=== PATIENT | female | born 1935 | race Caucasian/White ===

== ENCOUNTER 2018-01-06 21:49 | Inpatient (IN) ==
[2018-01-06 23:19] LABS: Basophils % 0.1 % (0.0-0.8); Eosinophils # 0.1 10*3/uL (0.0-0.87); Eosinophils % 1.3 % (0.00-10.9); Hematocrit 38.7 VOL% (35.7-47.0); Hemoglobin 12.8 GM/DL (12.0-16.0); Immature Granulocytes % 0.1 %; Immature Granulocytes Absolute 0.01 #; Lymphocytes # 2.2 10*3/uL (1.4-4.0); Lymphocytes % 31.7 % (21.3-54.2); Mean Corpuscular HGB Conc 33.1 GM/DL (32-36); Mean Corpuscular Hemoglobin 32 PG (27-34); Mean Corpuscular Volume 95.6 FL (87-102); Mean Platelet Volume 9.3 FL (9.6-12.0); Monocytes # 0.7 10*3/uL (0.11-0.8); Monocytes % 10.2 % (1.7-12.7); Neutrophils # 3.9 10*3/uL (1.4-7.4); Neutrophils % 56.6 % (38.7-73.9); Platelet Count 203 T/CUMM (130-400); Red Blood Count 4.05 MC/CUMM (3.8-5.5); White Blood Count 6.9 T/CUMM (4-12)
[2018-01-06 23:27] LABS: PT Patient Result 10.8 SECS; Partial Thromboplastin Time 26.5 SECS (0-40)
[2018-01-06 23:28] LABS: Alanine Aminotransferase 21 U/L (13-56); Albumin 3.7 G/DL (3.4-5.0); Alkaline Phosphatase 75 U/L (45-117); Aspartate Amino Transferase 24 U/L (0-37); Blood Urea Nitrogen 25 MG/DL (7-18); Calcium 9.4 MG/DL (8.5-10.1); Glucose 89 MG/DL (74-106); Potassium 3.8 MMOL/L (3.5-5.1); Sodium 136 MMOL/L (136-145); Troponin I Only < 0.015 NG/ML (0.00-0.045)
[2018-01-06] MEDS ORDERED: ALBUTEROL 2.5 MG/3 ML NEB RESP TX SCH (23:45)
[2018-01-06] MEDS ORDERED: ONDANSETRON 4 MG/2 ML VIAL IV STA (23:51)
[2018-01-06] MEDS ORDERED: FUROSEMIDE 100 MG/10 ML VIAL IV STA (23:51)
[2018-01-06] MEDS ORDERED: cloNIDine 0.1 MG TABLET PO STA (23:51)
[2018-01-07] MEDS ORDERED: METOPROLOL TARTRATE 5 MG/5 ML VIAL IV STA (00:57)
[2018-01-07 02:28] LABS: Apearance,Urine Slightly Hazy (Clear); Bilirubin,Urine Negative (Negative); Blood, Urine Small mg/dL (Negative); Glucose,Urine (UA) Negative (Negative); Ketones,Urine Negative (Negative); Mucus,Urine Occasional /LPF (Occasional); Nitrite,Urine Negative (Negative); Protein,Urine Negative; RBC,Urine 6 /HPF (0-4); Renal Epithelial Cells,Urine Occasional /HPF (<1); Squamous Epithelial Cell,Urine Occasional /HPF (0-10); Urine Color Yellow (Yellow); Urine Urobilinogen < 2.0 EU/DL (0.2-1.0); WBC,Urine 136 /HPF (0-6)
[2018-01-07] MEDS ORDERED: LACTATED RINGERS 500 ML IV ONE (02:43)
[2018-01-07] MEDS ORDERED: cefTRIAXone 1,000 MG in SODIUM CHLORIDE 0.9% 100 ML IV STA (02:44)
[2018-01-07 04:31] LABS: Lactic Acid 2.6 MMOL/L (0.4-2.0)
[2018-01-07] MEDS ORDERED: ACETAMINOPHEN 325 MG TABLET PO ONE (04:42)
[2018-01-07] MEDS ORDERED: cefTRIAXone 1,000 MG in SYRINGE 1 EACH IV SCH (07:00)
[2018-01-07] MEDS ORDERED: methylPREDNISolone SOD SUC 125 MG/2 ML VIAL IV SCH (07:17)
[2018-01-07] MEDS ORDERED: ONDANSETRON 4 MG/2 ML VIAL IV PRN (07:17)
[2018-01-07] MEDS ORDERED: SODIUM CHLORIDE 0.9% 1,000 ML IV ONE (07:17)
[2018-01-07 08:38] LABS: Lactic Acid 3.2 MMOL/L (0.4-2.0)
[2018-01-07 08:40] LABS: Risk Ratio 4.77
[2018-01-07] MEDS: MULTIVITAMIN (CENTRUM) TABLET PO SCH (10:29)
[2018-01-07] MEDS: FUROSEMIDE 40 MG TABLET PO SCH (10:29)
[2018-01-07] MEDS: DOCUSATE SODIUM 100 MG CAPSULE PO SCH ×2 (10:29→20:35)
[2018-01-07] MEDS: methylPREDNISolone SOD SUC 40 MG/1 ML VIAL IV SCH ×2 (10:30→23:39)
[2018-01-07] MEDS: DICLOFENAC 1% GEL 100 GM TUBE TOP SCH ×3 (10:30→20:36)
[2018-01-07] MEDS: ENOXAPARIN 40 MG/0.4 ML SYRINGE SUBCUT SCH (10:30)
[2018-01-07] MEDS: ASPIRIN EC 81 MG TABLET PO SCH (10:30)
[2018-01-07] MEDS: PANTOPRAZOLE 40 MG TABLET PO SCH (10:30)
[2018-01-07] MEDS: ACETAMINOPHEN 325 MG TABLET PO PRN ×2 (14:21→20:35)
[2018-01-08] MEDS: ACETAMINOPHEN 325 MG TABLET PO PRN (01:04)
[2018-01-08] MEDS ORDERED: cefTRIAXone 1,000 MG in SYRINGE 1 EACH IV SCH (04:00)
[2018-01-08] MEDS: MULTIVITAMIN (CENTRUM) TABLET PO SCH (08:50)
[2018-01-08] MEDS: methylPREDNISolone SOD SUC 40 MG/1 ML VIAL IV SCH ×2 (08:51→10:31)
[2018-01-08] MEDS: ASPIRIN EC 81 MG TABLET PO SCH (08:51)
[2018-01-08] MEDS: FUROSEMIDE 40 MG TABLET PO SCH (08:51)
[2018-01-08] MEDS: DOCUSATE SODIUM 100 MG CAPSULE PO SCH (08:51)
[2018-01-08] MEDS: ENOXAPARIN 40 MG/0.4 ML SYRINGE SUBCUT SCH (08:51)
[2018-01-08] MEDS: PANTOPRAZOLE 40 MG TABLET PO SCH (08:51)
[2018-01-08] MEDS: DICLOFENAC 1% GEL 100 GM TUBE TOP SCH (10:32)
[2018-01-08 13:08] VITALS: BP 150/76
== END 2018-01-08 13:18 | disposition home or self-care (01) | DRG 292 ==
LOC: EDBD → EDUNIT# → N.ED 21:49 → N.EDINP 01-07 03:34 → N.TELES 01-07 04:19

== ENCOUNTER 2018-06-08 22:35 | Inpatient (IN) ==
[2018-06-08] MEDS ORDERED: SODIUM CHLORIDE 0.9% 500 ML IV STA (22:56)
[2018-06-08 23:36] LABS: Apearance,Urine CLEAR (Clear); Bilirubin,Urine Negative (Negative); Blood, Urine Negative (Negative); Glucose,Urine (UA) Negative (Negative); Ketones,Urine Negative (Negative); Mucus,Urine Occasional /LPF (Occasional); Nitrite,Urine Negative (Negative); Protein,Urine Negative; RBC,Urine 1 /HPF (0-4); Urine Color Yellow (Yellow); Urine Urobilinogen < 2.0 EU/DL (0.2-1.0); WBC,Urine 95 /HPF (0-6)
[2018-06-09 00:20] LABS: Basophils % 0.4 % (0.0-0.8); Eosinophils % 0.8 % (0.00-10.9); Hematocrit 36.6 VOL% (35.7-47.0); Hemoglobin 11.1 GM/DL (12.0-16.0); Immature Granulocytes % 0.2 %; Immature Granulocytes Absolute 0.01 #; Lymphocytes # 1.6 10*3/uL (1.4-4.0); Lymphocytes % 30.5 % (21.3-54.2); Mean Corpuscular HGB Conc 30.3 GM/DL (32-36); Mean Corpuscular Hemoglobin 27 PG (27-34); Mean Corpuscular Volume 88.2 FL (87-102); Mean Platelet Volume 9.5 FL (9.6-12.0); Monocytes # 0.6 10*3/uL (0.11-0.8); Monocytes % 10.8 % (1.7-12.7); Neutrophils % 57.3 % (38.7-73.9); Platelet Count 218 T/CUMM (130-400); Red Blood Count 4.15 MC/CUMM (3.8-5.5); Red Cell Distribution Width 14.2 % (9.3-17.3); White Blood Count 5.2 T/CUMM (4-12)
[2018-06-09 00:29] LABS: Lactic Acid 1.1 MMOL/L (0.4-2.0)
[2018-06-09 00:30] LABS: Albumin 3.3 G/DL (3.4-5.0); Bilirubin,Total 0.4 MG/DL (0.2-1.0); Calcium 8.7 MG/DL (8.5-10.1); Osmolality,Calculated 264.4 MOS/KG (273-304); Potassium 3.6 MMOL/L (3.5-5.1); Total Protein 7.8 G/DL (6.4-8.3)
[2018-06-09] MEDS ORDERED: LORazepam 2 MG/1 ML VIAL IV STA (01:23)
[2018-06-09] MEDS: VANCOMYCIN INJ 1,000 MG in SODIUM CHLORIDE 0.9% 250 ML IV SCH ×2 (03:29→16:30)
[2018-06-09] MEDS: DEXTROSE 5% NACL 0.45% 1,000 ML IV SCH (03:29)
[2018-06-09] MEDS: PIPERACILLIN/TAZOBACTAM 3,375 MG in SODIUM CHLORIDE 0.9% 100 ML IV SCH ×2 (04:50→12:06)
[2018-06-09 05:28] LABS: Hypochromasia 1+; Microcytosis 1+; Ovalocytes Few; Platelet Estimate Normal
[2018-06-09] MEDS: ENOXAPARIN 40 MG/0.4 ML SYRINGE SUBCUT SCH (12:07)
[2018-06-09] MEDS ORDERED: NITROGLYCERIN SL 0.4 MG TABLET SL PRN (12:39)
[2018-06-09] MEDS ORDERED: HALOPERIDOL 5 MG/ML AMP IM ONE (14:15)
[2018-06-09] MEDS: traMADol 50 MG TABLET PO PRN ×2 (14:37→21:25)
[2018-06-09] MEDS: MELATONIN 3 MG TABLET PO SCH (21:25)
[2018-06-09] MEDS: POLYETHYLENE GLYCOL POWDER 17 GM PACK PO SCH (21:26)
[2018-06-09] MEDS: traZODone 50 MG TABLET PO PRN (21:26)
[2018-06-10] MEDS: DEXTROSE 5% NACL 0.45% 1,000 ML IV SCH (01:05)
[2018-06-10] MEDS: VANCOMYCIN INJ 1,000 MG in SODIUM CHLORIDE 0.9% 250 ML IV SCH (04:05)
[2018-06-10] MEDS: traMADol 50 MG TABLET PO PRN ×4 (04:17→20:13)
[2018-06-10 06:09] LABS: Calcium 8.4 MG/DL (8.5-10.1); Osmolality,Calculated 274.5 MOS/KG (273-304); Potassium 2.8 MMOL/L (3.5-5.1)
[2018-06-10] MEDS ORDERED: POTASSIUM CHLORIDE 20 MEQ TABLET PO ONE (09:00)
[2018-06-10] MEDS: POTASSIUM CHLORIDE RIDER 10 MEQ in PREMIX 1 EACH IV SCH ×4 (09:12→16:40)
[2018-06-10] MEDS: ENOXAPARIN 40 MG/0.4 ML SYRINGE SUBCUT SCH (09:13)
[2018-06-10] MEDS: METOPROLOL SUCCINATE XL 25 MG TABLET PO SCH (09:15)
[2018-06-10] MEDS: MULTIVITAMIN (CENTRUM) TABLET PO SCH (09:15)
[2018-06-10] MEDS: POLYETHYLENE GLYCOL POWDER 17 GM PACK PO SCH ×3 (09:17→21:15)
[2018-06-10] MEDS: ASPIRIN EC 81 MG TABLET PO SCH (09:18)
[2018-06-10] MEDS: TAMSULOSIN 0.4 MG CAPSULE PO SCH (09:18)
[2018-06-10] MEDS: ACETAMINOPHEN 325 MG TABLET PO PRN ×2 (10:27→18:35)
[2018-06-10] MEDS: DOXYCYCLINE HYCLATE 100 MG CAPSULE PO SCH ×2 (12:50→20:12)
[2018-06-10] MEDS: MELATONIN 3 MG TABLET PO SCH (20:12)
[2018-06-10] MEDS: traZODone 50 MG TABLET PO PRN (20:14)
[2018-06-10] MEDS ORDERED: HALOPERIDOL 5 MG/ML AMP IM ONE (21:49)
[2018-06-11 00:18] LABS: Calcium 8.8 MG/DL (8.5-10.1); Osmolality,Calculated 261.8 MOS/KG (273-304); Potassium 4.2 MMOL/L (3.5-5.1)
[2018-06-11] MEDS: traMADol 50 MG TABLET PO PRN (04:49)
[2018-06-11] MEDS: METOPROLOL SUCCINATE XL 25 MG TABLET PO SCH (10:07)
[2018-06-11] MEDS: DOXYCYCLINE HYCLATE 100 MG CAPSULE PO SCH ×2 (10:07→20:24)
[2018-06-11] MEDS: ENOXAPARIN 40 MG/0.4 ML SYRINGE SUBCUT SCH (10:08)
[2018-06-11] MEDS: TAMSULOSIN 0.4 MG CAPSULE PO SCH (10:08)
[2018-06-11] MEDS: ASPIRIN EC 81 MG TABLET PO SCH (10:08)
[2018-06-11] MEDS: MULTIVITAMIN (CENTRUM) TABLET PO SCH (10:08)
[2018-06-11] MEDS: POLYETHYLENE GLYCOL POWDER 17 GM PACK PO SCH ×2 (10:12→20:25)
[2018-06-11] MEDS ORDERED: ALBUTEROL/IPRATROPIUM 3 ML NEB RESP TX PRN (10:38)
[2018-06-11] MEDS ORDERED: FUROSEMIDE 40 MG/4 ML VIAL IV ONE (11:00)
[2018-06-11] MEDS ORDERED: MAGNESIUM HYDROXIDE SUSP 30 ML UDCUP PO ONE (15:00)
[2018-06-11] MEDS: MELATONIN 3 MG TABLET PO SCH (20:24)
[2018-06-11] MEDS: traZODone 50 MG TABLET PO PRN (20:24)
[2018-06-11] MEDS: ALUMINUM/MAGNES/SIMETH MAX STR 30 ML UDCUP PO PRN (22:28)
[2018-06-12] MEDS: ALUMINUM/MAGNES/SIMETH MAX STR 30 ML UDCUP PO PRN (02:36)
[2018-06-12 05:17] LABS: Basophils % 0.2 % (0.0-0.8); Eosinophils % 0.3 % (0.00-10.9); Hematocrit 35.6 VOL% (35.7-47.0); Hemoglobin 10.9 GM/DL (12.0-16.0); Immature Granulocytes % 0.3 %; Immature Granulocytes Absolute 0.02 #; Lymphocytes # 1.1 10*3/uL (1.4-4.0); Lymphocytes % 17.7 % (21.3-54.2); Mean Corpuscular HGB Conc 30.6 GM/DL (32-36); Mean Corpuscular Hemoglobin 28 PG (27-34); Mean Corpuscular Volume 89.7 FL (87-102); Mean Platelet Volume 9.5 FL (9.6-12.0); Monocytes # 0.7 10*3/uL (0.11-0.8); Monocytes % 10.8 % (1.7-12.7); Neutrophils # 4.3 10*3/uL (1.4-7.4); Neutrophils % 70.7 % (38.7-73.9); Platelet Count 220 T/CUMM (130-400); Red Blood Count 3.97 MC/CUMM (3.8-5.5); Red Cell Distribution Width 14.4 % (9.3-17.3); White Blood Count 6.1 T/CUMM (4-12)
[2018-06-12 05:36] LABS: Hypochromasia 1+; Microcytosis 1+; Ovalocytes Slight; Platelet Estimate Normal
[2018-06-12 05:54] LABS: Calcium 9.1 MG/DL (8.5-10.1); Osmolality,Calculated 268.4 MOS/KG (273-304); Potassium 4.1 MMOL/L (3.5-5.1)
[2018-06-12] MEDS ORDERED: FUROSEMIDE 20 MG TABLET PO SCH (09:00)
[2018-06-12] MEDS: MULTIVITAMIN (CENTRUM) TABLET PO SCH (09:36)
[2018-06-12] MEDS: ASPIRIN EC 81 MG TABLET PO SCH (09:37)
[2018-06-12] MEDS: METOPROLOL SUCCINATE XL 25 MG TABLET PO SCH (09:37)
[2018-06-12] MEDS: TAMSULOSIN 0.4 MG CAPSULE PO SCH (09:37)
[2018-06-12] MEDS: DOXYCYCLINE HYCLATE 100 MG CAPSULE PO SCH ×2 (09:37→20:19)
[2018-06-12] MEDS: POLYETHYLENE GLYCOL POWDER 17 GM PACK PO SCH ×3 (09:38→20:24)
[2018-06-12] MEDS: ENOXAPARIN 40 MG/0.4 ML SYRINGE SUBCUT SCH (09:38)
[2018-06-12] MEDS: FUROSEMIDE 20 MG/2 ML VIAL IV SCH (09:39)
[2018-06-12] MEDS: ZINC OXIDE PASTE 113 GM TUBE TOP SCH ×2 (15:58→20:20)
[2018-06-12] MEDS: MELATONIN 3 MG TABLET PO SCH (20:19)
[2018-06-12] MEDS: ACETAMINOPHEN 325 MG TABLET PO PRN (20:19)
[2018-06-13] MEDS: METOPROLOL SUCCINATE XL 25 MG TABLET PO SCH (08:24)
[2018-06-13] MEDS: MULTIVITAMIN (CENTRUM) TABLET PO SCH (08:25)
[2018-06-13] MEDS: ENOXAPARIN 40 MG/0.4 ML SYRINGE SUBCUT SCH (08:25)
[2018-06-13] MEDS: TAMSULOSIN 0.4 MG CAPSULE PO SCH (08:25)
[2018-06-13] MEDS: ZINC OXIDE PASTE 113 GM TUBE TOP SCH ×2 (08:25→20:21)
[2018-06-13] MEDS: ASPIRIN EC 81 MG TABLET PO SCH (08:25)
[2018-06-13] MEDS: POLYETHYLENE GLYCOL POWDER 17 GM PACK PO SCH ×2 (08:25→20:48)
[2018-06-13] MEDS: FUROSEMIDE 20 MG/2 ML VIAL IV SCH (08:26)
[2018-06-13 11:37] LABS: ABG Base Excess 11.2 MMOL/L (-2.5-2.5); ABG HCO3 34.9 MMOL/L (20-26); ABG Oxygen Saturation 94.7 % (95-100); ABG PCO2 59.1 MM HG (35-48); ABG PH 7.417 (7.35-7.45); ABG PO2 74.3 MM HG (80-95); ABG TCO2 34.2 MMOL/L (23-27); Allen Test Positive
[2018-06-13 12:37] LABS: Apearance,Urine Slightly Hazy (Clear); Bacteria,Urine Occasional /HPF (Few); Bilirubin,Urine Negative (Negative); Blood, Urine Negative (Negative); Glucose,Urine (UA) Negative (Negative); Ketones,Urine Negative (Negative); Mucus,Urine Occasional /LPF (Occasional); Nitrite,Urine Negative (Negative); Protein,Urine Negative; RBC,Urine 3 /HPF (0-4); Squamous Epithelial Cell,Urine Occasional /HPF (0-10); Urine Color Yellow (Yellow); Urine Specific Gravity 1.008 (1.001-1.035); Urine Urobilinogen < 2.0 EU/DL (0.2-1.0); WBC,Urine 22 /HPF (0-6)
[2018-06-13] MEDS: CAPTOPRIL 6.25 MG TABLET PO SCH ×2 (14:00→20:21)
[2018-06-13] MEDS: CARVEDILOL 6.25 MG TABLET PO SCH ×2 (14:00→20:21)
[2018-06-13] MEDS: MELATONIN 3 MG TABLET PO SCH (20:21)
[2018-06-13] MEDS: traMADol 50 MG TABLET PO PRN (20:21)
[2018-06-13] MEDS: SPIRONOLACTONE 25 MG TABLET PO SCH (20:21)
[2018-06-14 05:08] LABS: Calcium 8.4 MG/DL (8.5-10.1); Osmolality,Calculated 274.1 MOS/KG (273-304); Potassium 4.1 MMOL/L (3.5-5.1)
[2018-06-14] MEDS ORDERED: metOLazone 2.5 MG TABLET PO SCH (09:00)
[2018-06-14] MEDS: ENOXAPARIN 40 MG/0.4 ML SYRINGE SUBCUT SCH (09:18)
[2018-06-14] MEDS: POLYETHYLENE GLYCOL POWDER 17 GM PACK PO SCH ×2 (09:18→22:33)
[2018-06-14] MEDS: CAPTOPRIL 6.25 MG TABLET PO SCH ×3 (09:18→20:29)
[2018-06-14] MEDS: MULTIVITAMIN (CENTRUM) TABLET PO SCH (09:18)
[2018-06-14] MEDS: FUROSEMIDE 20 MG/2 ML VIAL IV SCH (09:18)
[2018-06-14] MEDS: CARVEDILOL 6.25 MG TABLET PO SCH ×2 (09:19→20:29)
[2018-06-14] MEDS: SPIRONOLACTONE 25 MG TABLET PO SCH ×2 (09:19→20:29)
[2018-06-14] MEDS: TAMSULOSIN 0.4 MG CAPSULE PO SCH (09:20)
[2018-06-14] MEDS: ASPIRIN EC 81 MG TABLET PO SCH (09:20)
[2018-06-14] MEDS: ZINC OXIDE PASTE 113 GM TUBE TOP SCH ×2 (09:20→20:38)
[2018-06-14] MEDS: MELATONIN 3 MG TABLET PO SCH (20:29)
[2018-06-14] MEDS: traMADol 50 MG TABLET PO PRN (20:29)
[2018-06-15 04:11] LABS: Calcium 8.4 MG/DL (8.5-10.1); Osmolality,Calculated 272.2 MOS/KG (273-304); Potassium 3.6 MMOL/L (3.5-5.1)
[2018-06-15] MEDS: ENOXAPARIN 40 MG/0.4 ML SYRINGE SUBCUT SCH (09:34)
[2018-06-15] MEDS: MULTIVITAMIN (CENTRUM) TABLET PO SCH (09:35)
[2018-06-15] MEDS: CARVEDILOL 12.5 MG TABLET PO SCH ×2 (09:35→20:32)
[2018-06-15] MEDS: SPIRONOLACTONE 25 MG TABLET PO SCH (09:35)
[2018-06-15] MEDS: ASPIRIN EC 81 MG TABLET PO SCH (09:35)
[2018-06-15] MEDS: FUROSEMIDE 20 MG/2 ML VIAL IV SCH (09:35)
[2018-06-15] MEDS: TAMSULOSIN 0.4 MG CAPSULE PO SCH (09:35)
[2018-06-15] MEDS: ZINC OXIDE PASTE 113 GM TUBE TOP SCH ×2 (09:36→20:32)
[2018-06-15] MEDS: POLYETHYLENE GLYCOL POWDER 17 GM PACK PO SCH ×2 (09:40→20:31)
[2018-06-15] MEDS: CAPTOPRIL 6.25 MG TABLET PO SCH ×3 (11:23→20:33)
[2018-06-15] MEDS: amLODIPine 2.5 MG TABLET PO SCH (13:36)
[2018-06-15 14:13] LABS: Troponin I 0.557 NG/ML (0.00-0.045)
[2018-06-15] MEDS: MELATONIN 3 MG TABLET PO SCH (20:32)
[2018-06-15 22:17] LABS: Troponin I 0.551 NG/ML (0.00-0.045)
[2018-06-16 04:32] LABS: Basophils % 0.5 % (0.0-0.8); Eosinophils # 0.1 10*3/uL (0.0-0.87); Eosinophils % 1.6 % (0.00-10.9); Hematocrit 35.1 VOL% (35.7-47.0); Hemoglobin 10.6 GM/DL (12.0-16.0); Immature Granulocytes % 0.4 %; Immature Granulocytes Absolute 0.02 #; Lymphocytes # 1.3 10*3/uL (1.4-4.0); Lymphocytes % 23.4 % (21.3-54.2); Mean Corpuscular HGB Conc 30.2 GM/DL (32-36); Mean Corpuscular Hemoglobin 27 PG (27-34); Mean Corpuscular Volume 90.2 FL (87-102); Monocytes # 0.6 10*3/uL (0.11-0.8); Monocytes % 10.7 % (1.7-12.7); Neutrophils # 3.6 10*3/uL (1.4-7.4); Neutrophils % 63.4 % (38.7-73.9); Platelet Count 253 T/CUMM (130-400); Red Blood Count 3.89 MC/CUMM (3.8-5.5); Red Cell Distribution Width 14.4 % (9.3-17.3); White Blood Count 5.7 T/CUMM (4-12)
[2018-06-16 05:02] LABS: Calcium 8.5 MG/DL (8.5-10.1); Osmolality,Calculated 274.1 MOS/KG (273-304); Potassium 3.5 MMOL/L (3.5-5.1)
[2018-06-16] MEDS: FUROSEMIDE 40 MG/4 ML VIAL IV SCH (09:30)
[2018-06-16] MEDS: SPIRONOLACTONE 25 MG TABLET PO SCH (09:35)
[2018-06-16] MEDS: TAMSULOSIN 0.4 MG CAPSULE PO SCH (09:35)
[2018-06-16] MEDS: CARVEDILOL 12.5 MG TABLET PO SCH ×2 (09:35→21:27)
[2018-06-16] MEDS: ASPIRIN EC 81 MG TABLET PO SCH (09:35)
[2018-06-16] MEDS: ZINC OXIDE PASTE 113 GM TUBE TOP SCH ×2 (09:40→21:26)
[2018-06-16] MEDS: CAPTOPRIL 6.25 MG TABLET PO SCH ×3 (10:00→21:26)
[2018-06-16] MEDS: MULTIVITAMIN (CENTRUM) TABLET PO SCH (10:41)
[2018-06-16] MEDS: ENOXAPARIN 40 MG/0.4 ML SYRINGE SUBCUT SCH (10:43)
[2018-06-16] MEDS: amLODIPine 2.5 MG TABLET PO SCH (10:43)
[2018-06-16] MEDS: POLYETHYLENE GLYCOL POWDER 17 GM PACK PO SCH ×3 (10:43→21:33)
[2018-06-16] MEDS: ACETAMINOPHEN 325 MG TABLET PO PRN (13:50)
[2018-06-16] MEDS ORDERED: diphenhydrAMINE CAP 25 MG CAPSULE PO ONE (15:45)
[2018-06-16] MEDS ORDERED: POTASSIUM CHLORIDE RIDER 10 MEQ in PREMIX 1 EACH IV PRN (15:45)
[2018-06-16] MEDS ORDERED: DIAZEPAM 5 MG TABLET PO ONE (15:45)
[2018-06-16] MEDS ORDERED: MAGNESIUM SULF RIDER 2 GM in PREMIX 1 EACH IV PRN (15:45)
[2018-06-16] MEDS: traMADol 50 MG TABLET PO PRN (16:00)
[2018-06-16] MEDS: MELATONIN 3 MG TABLET PO SCH (21:26)
[2018-06-17] MEDS: traMADol 50 MG TABLET PO PRN ×2 (01:38→09:06)
[2018-06-17] MEDS: traZODone 50 MG TABLET PO PRN (02:39)
[2018-06-17 04:39] LABS: Basophils % 0.5 % (0.0-0.8); Eosinophils # 0.1 10*3/uL (0.0-0.87); Eosinophils % 1.6 % (0.00-10.9); Hematocrit 32.3 VOL% (35.7-47.0); Hemoglobin 9.9 GM/DL (12.0-16.0); Immature Granulocytes % 0.2 %; Immature Granulocytes Absolute 0.01 #; Lymphocytes # 1.3 10*3/uL (1.4-4.0); Lymphocytes % 22.4 % (21.3-54.2); Mean Corpuscular HGB Conc 30.7 GM/DL (32-36); Mean Corpuscular Hemoglobin 27 PG (27-34); Mean Platelet Volume 9.6 FL (9.6-12.0); Monocytes # 0.8 10*3/uL (0.11-0.8); Monocytes % 14.8 % (1.7-12.7); Neutrophils # 3.4 10*3/uL (1.4-7.4); Neutrophils % 60.5 % (38.7-73.9); Platelet Count 244 T/CUMM (130-400); Red Blood Count 3.63 MC/CUMM (3.8-5.5); Red Cell Distribution Width 14.1 % (9.3-17.3); White Blood Count 5.6 T/CUMM (4-12)
[2018-06-17 04:58] LABS: Calcium 8.7 MG/DL (8.5-10.1); Osmolality,Calculated 274.1 MOS/KG (273-304); Potassium 3.6 MMOL/L (3.5-5.1)
[2018-06-17] MEDS: ACETAMINOPHEN 325 MG TABLET PO PRN (05:22)
[2018-06-17] MEDS: ALUMINUM/MAGNES/SIMETH MAX STR 30 ML UDCUP PO PRN (05:23)
[2018-06-17] MEDS ORDERED: diphenhydrAMINE CAP 25 MG CAPSULE PO ONE (07:00)
[2018-06-17] MEDS ORDERED: DIAZEPAM 5 MG TABLET PO ONE (07:00)
[2018-06-17] MEDS: CAPTOPRIL 6.25 MG TABLET PO SCH (09:06)
[2018-06-17] MEDS: CARVEDILOL 12.5 MG TABLET PO SCH ×2 (09:06→20:46)
[2018-06-17] MEDS: ASPIRIN EC 81 MG TABLET PO SCH (09:07)
[2018-06-17] MEDS: SPIRONOLACTONE 25 MG TABLET PO SCH (09:07)
[2018-06-17] MEDS: TAMSULOSIN 0.4 MG CAPSULE PO SCH (09:07)
[2018-06-17] MEDS: MULTIVITAMIN (CENTRUM) TABLET PO SCH (09:07)
[2018-06-17] MEDS: ZINC OXIDE PASTE 113 GM TUBE TOP SCH ×2 (09:07→20:46)
[2018-06-17] MEDS: POLYETHYLENE GLYCOL POWDER 17 GM PACK PO SCH ×2 (09:08→20:44)
[2018-06-17] MEDS: FUROSEMIDE 40 MG/4 ML VIAL IV SCH (09:09)
[2018-06-17] MEDS: ENOXAPARIN 40 MG/0.4 ML SYRINGE SUBCUT SCH (09:14)
[2018-06-17] MEDS ORDERED: LIDOCAINE 1% 20 ML VIAL ONE (13:25)
[2018-06-17] MEDS ORDERED: MIDAZOLAM 2 MG/2 ML VIAL ONE ×2 (13:34→14:07)
[2018-06-17] MEDS ORDERED: ONDANSETRON 4 MG/2 ML VIAL IV PRN (14:20)
[2018-06-17] MEDS ORDERED: CLOPIDOGREL 300 MG TABLET PO ONE (15:04)
[2018-06-17] MEDS: MELATONIN 3 MG TABLET PO SCH (20:46)
[2018-06-17] MEDS: PITAVASTATIN 2 MG TABLET PO SCH (20:46)
[2018-06-17] MEDS: LISINOPRIL 5 MG TABLET PO SCH (20:46)
[2018-06-18 04:22] LABS: Basophils % 0.6 % (0.0-0.8); Eosinophils % 0.6 % (0.00-10.9); Hematocrit 32.7 VOL% (35.7-47.0); Immature Granulocytes % 0.4 %; Immature Granulocytes Absolute 0.02 #; Lymphocytes # 1.1 10*3/uL (1.4-4.0); Lymphocytes % 22.7 % (21.3-54.2); Mean Corpuscular HGB Conc 30.6 GM/DL (32-36); Mean Corpuscular Hemoglobin 27 PG (27-34); Mean Corpuscular Volume 89.6 FL (87-102); Mean Platelet Volume 10.1 FL (9.6-12.0); Monocytes # 0.9 10*3/uL (0.11-0.8); Monocytes % 17.1 % (1.7-12.7); Neutrophils # 2.9 10*3/uL (1.4-7.4); Neutrophils % 58.6 % (38.7-73.9); Platelet Count 246 T/CUMM (130-400); Red Blood Count 3.65 MC/CUMM (3.8-5.5); Red Cell Distribution Width 14.4 % (9.3-17.3)
[2018-06-18 04:36] LABS: Calcium 8.5 MG/DL (8.5-10.1); Potassium 3.7 MMOL/L (3.5-5.1)
[2018-06-18 04:37] LABS: Calcium 8.5 MG/DL (8.5-10.1); Osmolality,Calculated 272.1 MOS/KG (273-304); Potassium 3.9 MMOL/L (3.5-5.1)
[2018-06-18 04:59] LABS: Band Neutrophils 25 % (0-10); Eosinophils 2 % (0-10); Hypochromasia 2+; Lymphocytes 14 % (20-55); Platelet Estimate Normal; Segmented Neutrophils 40 % (50-85); Target Cells 1+; Total Cells Counted 100
[2018-06-18] MEDS: ENOXAPARIN 40 MG/0.4 ML SYRINGE SUBCUT SCH (08:52)
[2018-06-18] MEDS: FUROSEMIDE 40 MG/4 ML VIAL IV SCH (08:53)
[2018-06-18] MEDS: ASPIRIN EC 81 MG TABLET PO SCH (08:54)
[2018-06-18] MEDS: CLOPIDOGREL 75 MG TABLET PO SCH (08:54)
[2018-06-18] MEDS: LISINOPRIL 5 MG TABLET PO SCH ×2 (08:54→21:06)
[2018-06-18] MEDS: CARVEDILOL 12.5 MG TABLET PO SCH ×2 (08:54→21:06)
[2018-06-18] MEDS: SPIRONOLACTONE 25 MG TABLET PO SCH (08:54)
[2018-06-18] MEDS: MULTIVITAMIN (CENTRUM) TABLET PO SCH (08:54)
[2018-06-18] MEDS: POLYETHYLENE GLYCOL POWDER 17 GM PACK PO SCH ×2 (14:20→21:06)
[2018-06-18] MEDS: ZINC OXIDE PASTE 113 GM TUBE TOP SCH ×2 (14:20→21:06)
[2018-06-18] MEDS: PITAVASTATIN 2 MG TABLET PO SCH (21:06)
[2018-06-18] MEDS: MELATONIN 3 MG TABLET PO SCH (21:06)
[2018-06-18] MEDS: ACETAMINOPHEN 325 MG TABLET PO PRN (22:50)
[2018-06-19 05:44] LABS: Basophils % 0.5 % (0.0-0.8); Eosinophils # 0.1 10*3/uL (0.0-0.87); Eosinophils % 1.4 % (0.00-10.9); Hematocrit 30.7 VOL% (35.7-47.0); Hemoglobin 9.4 GM/DL (12.0-16.0); Immature Granulocytes % 0.3 %; Immature Granulocytes Absolute 0.02 #; Lymphocytes # 1.5 10*3/uL (1.4-4.0); Lymphocytes % 23.9 % (21.3-54.2); Mean Corpuscular HGB Conc 30.6 GM/DL (32-36); Mean Corpuscular Hemoglobin 27 PG (27-34); Mean Corpuscular Volume 89.5 FL (87-102); Mean Platelet Volume 9.7 FL (9.6-12.0); Monocytes # 0.9 10*3/uL (0.11-0.8); Monocytes % 14.1 % (1.7-12.7); Neutrophils # 3.8 10*3/uL (1.4-7.4); Neutrophils % 59.8 % (38.7-73.9); Platelet Count 224 T/CUMM (130-400); Red Blood Count 3.43 MC/CUMM (3.8-5.5); Red Cell Distribution Width 14.3 % (9.3-17.3); White Blood Count 6.4 T/CUMM (4-12)
[2018-06-19 05:56] LABS: Calcium 8.3 MG/DL (8.5-10.1); Osmolality,Calculated 273.1 MOS/KG (273-304); Potassium 3.8 MMOL/L (3.5-5.1)
[2018-06-19] MEDS: ENOXAPARIN 40 MG/0.4 ML SYRINGE SUBCUT SCH (08:54)
[2018-06-19] MEDS: SPIRONOLACTONE 25 MG TABLET PO SCH (08:55)
[2018-06-19] MEDS: FUROSEMIDE 20 MG TABLET PO SCH (08:55)
[2018-06-19] MEDS: MULTIVITAMIN (CENTRUM) TABLET PO SCH (08:55)
[2018-06-19] MEDS: CARVEDILOL 12.5 MG TABLET PO SCH ×2 (08:56→20:12)
[2018-06-19] MEDS: ZINC OXIDE PASTE 113 GM TUBE TOP SCH ×2 (08:56→20:13)
[2018-06-19] MEDS: ASPIRIN EC 81 MG TABLET PO SCH (08:56)
[2018-06-19] MEDS: CLOPIDOGREL 75 MG TABLET PO SCH (08:56)
[2018-06-19] MEDS: POLYETHYLENE GLYCOL POWDER 17 GM PACK PO SCH ×2 (08:58→20:12)
[2018-06-19] MEDS: LISINOPRIL 5 MG TABLET PO SCH (13:13)
[2018-06-19] MEDS: traMADol 50 MG TABLET PO PRN (17:57)
[2018-06-19] MEDS: PITAVASTATIN 2 MG TABLET PO SCH (20:12)
[2018-06-19] MEDS: ACETAMINOPHEN 325 MG TABLET PO PRN (20:12)
[2018-06-19] MEDS: MELATONIN 3 MG TABLET PO SCH (20:12)
[2018-06-20] MEDS: ACETAMINOPHEN 325 MG TABLET PO PRN ×2 (02:22→20:29)
[2018-06-20 06:13] LABS: Basophils % 0.4 % (0.0-0.8); Eosinophils # 0.1 10*3/uL (0.0-0.87); Eosinophils % 2.4 % (0.00-10.9); Hematocrit 31.8 VOL% (35.7-47.0); Hemoglobin 9.8 GM/DL (12.0-16.0); Immature Granulocytes % 0.4 %; Immature Granulocytes Absolute 0.02 #; Lymphocytes # 1.3 10*3/uL (1.4-4.0); Lymphocytes % 24.4 % (21.3-54.2); Mean Corpuscular HGB Conc 30.8 GM/DL (32-36); Mean Corpuscular Hemoglobin 28 PG (27-34); Mean Corpuscular Volume 90.6 FL (87-102); Mean Platelet Volume 9.9 FL (9.6-12.0); Monocytes # 0.8 10*3/uL (0.11-0.8); Monocytes % 15.5 % (1.7-12.7); Neutrophils # 3.1 10*3/uL (1.4-7.4); Neutrophils % 56.9 % (38.7-73.9); Platelet Count 201 T/CUMM (130-400); Red Blood Count 3.51 MC/CUMM (3.8-5.5); Red Cell Distribution Width 14.4 % (9.3-17.3); White Blood Count 5.4 T/CUMM (4-12)
[2018-06-20 06:26] LABS: Calcium 8.5 MG/DL (8.5-10.1); Osmolality,Calculated 264.7 MOS/KG (273-304); Potassium 4.6 MMOL/L (3.5-5.1)
[2018-06-20] MEDS: POLYETHYLENE GLYCOL POWDER 17 GM PACK PO SCH ×2 (09:36→20:29)
[2018-06-20] MEDS: ENOXAPARIN 40 MG/0.4 ML SYRINGE SUBCUT SCH (09:36)
[2018-06-20] MEDS: traMADol 50 MG TABLET PO PRN (09:37)
[2018-06-20] MEDS: SPIRONOLACTONE 25 MG TABLET PO SCH (09:37)
[2018-06-20] MEDS: FUROSEMIDE 20 MG TABLET PO SCH (09:38)
[2018-06-20] MEDS: CLOPIDOGREL 75 MG TABLET PO SCH (09:38)
[2018-06-20] MEDS: CARVEDILOL 12.5 MG TABLET PO SCH ×2 (09:38→20:29)
[2018-06-20] MEDS: ASPIRIN EC 81 MG TABLET PO SCH (09:38)
[2018-06-20] MEDS: MULTIVITAMIN (CENTRUM) TABLET PO SCH (09:38)
[2018-06-20] MEDS: ZINC OXIDE PASTE 113 GM TUBE TOP SCH ×2 (09:38→20:29)
[2018-06-20] MEDS: LISINOPRIL 5 MG TABLET PO SCH (09:38)
[2018-06-20] MEDS: MELATONIN 3 MG TABLET PO SCH (20:29)
[2018-06-21] MEDS: ZALEPLON 5 MG CAPSULE PO PRN ×2 (01:10→20:52)
[2018-06-21 05:31] LABS: Basophils % 0.4 % (0.0-0.8); Eosinophils # 0.1 10*3/uL (0.0-0.87); Eosinophils % 2.4 % (0.00-10.9); Hematocrit 30.8 VOL% (35.7-47.0); Hemoglobin 9.3 GM/DL (12.0-16.0); Immature Granulocytes % 0.4 %; Immature Granulocytes Absolute 0.02 #; Lymphocytes # 1.7 10*3/uL (1.4-4.0); Lymphocytes % 34.3 % (21.3-54.2); Mean Corpuscular HGB Conc 30.2 GM/DL (32-36); Mean Corpuscular Hemoglobin 27 PG (27-34); Mean Corpuscular Volume 90.3 FL (87-102); Mean Platelet Volume 9.5 FL (9.6-12.0); Monocytes # 0.7 10*3/uL (0.11-0.8); Monocytes % 14.7 % (1.7-12.7); Neutrophils # 2.4 10*3/uL (1.4-7.4); Neutrophils % 47.8 % (38.7-73.9); Platelet Count 226 T/CUMM (130-400); Red Blood Count 3.41 MC/CUMM (3.8-5.5); Red Cell Distribution Width 14.2 % (9.3-17.3)
[2018-06-21 06:05] LABS: Calcium 8.7 MG/DL (8.5-10.1); Osmolality,Calculated 266.4 MOS/KG (273-304); Potassium 4.6 MMOL/L (3.5-5.1)
[2018-06-21] MEDS: ENOXAPARIN 40 MG/0.4 ML SYRINGE SUBCUT SCH (09:30)
[2018-06-21] MEDS: ASPIRIN EC 81 MG TABLET PO SCH (09:33)
[2018-06-21] MEDS: CARVEDILOL 12.5 MG TABLET PO SCH ×2 (09:33→20:53)
[2018-06-21] MEDS: SPIRONOLACTONE 25 MG TABLET PO SCH (09:33)
[2018-06-21] MEDS: MULTIVITAMIN (CENTRUM) TABLET PO SCH (09:33)
[2018-06-21] MEDS: LISINOPRIL 5 MG TABLET PO SCH (09:33)
[2018-06-21] MEDS: CLOPIDOGREL 75 MG TABLET PO SCH (09:34)
[2018-06-21] MEDS: POLYETHYLENE GLYCOL POWDER 17 GM PACK PO SCH ×2 (09:34→20:53)
[2018-06-21] MEDS: FUROSEMIDE 20 MG TABLET PO SCH (09:34)
[2018-06-21] MEDS: ZINC OXIDE PASTE 113 GM TUBE TOP SCH ×2 (09:51→20:53)
[2018-06-21] MEDS: traMADol 50 MG TABLET PO PRN (11:49)
[2018-06-21] MEDS: ACETAMINOPHEN 325 MG TABLET PO PRN (20:53)
[2018-06-21] MEDS: MELATONIN 3 MG TABLET PO SCH (20:53)
[2018-06-22 04:43] LABS: Basophils % 0.4 % (0.0-0.8); Eosinophils # 0.1 10*3/uL (0.0-0.87); Eosinophils % 2.2 % (0.00-10.9); Hematocrit 33.4 VOL% (35.7-47.0); Hemoglobin 10.1 GM/DL (12.0-16.0); Immature Granulocytes % 0.2 %; Immature Granulocytes Absolute 0.01 #; Lymphocytes # 1.3 10*3/uL (1.4-4.0); Lymphocytes % 29.5 % (21.3-54.2); Mean Corpuscular HGB Conc 30.2 GM/DL (32-36); Mean Corpuscular Hemoglobin 27 PG (27-34); Mean Corpuscular Volume 89.8 FL (87-102); Mean Platelet Volume 9.2 FL (9.6-12.0); Monocytes # 0.7 10*3/uL (0.11-0.8); Monocytes % 14.7 % (1.7-12.7); Neutrophils # 2.4 10*3/uL (1.4-7.4); Platelet Count 238 T/CUMM (130-400); Red Blood Count 3.72 MC/CUMM (3.8-5.5); Red Cell Distribution Width 14.4 % (9.3-17.3); White Blood Count 4.6 T/CUMM (4-12)
[2018-06-22 05:22] LABS: Calcium 8.9 MG/DL (8.5-10.1); Osmolality,Calculated 266.4 MOS/KG (273-304); Potassium 4.8 MMOL/L (3.5-5.1)
[2018-06-22] MEDS: ASPIRIN EC 81 MG TABLET PO SCH (08:26)
[2018-06-22] MEDS: LISINOPRIL 5 MG TABLET PO SCH (08:26)
[2018-06-22] MEDS: CARVEDILOL 12.5 MG TABLET PO SCH ×2 (08:26→21:30)
[2018-06-22] MEDS: MULTIVITAMIN (CENTRUM) TABLET PO SCH (08:26)
[2018-06-22] MEDS: POLYETHYLENE GLYCOL POWDER 17 GM PACK PO SCH ×2 (08:26→21:22)
[2018-06-22] MEDS: CLOPIDOGREL 75 MG TABLET PO SCH (08:26)
[2018-06-22] MEDS: FUROSEMIDE 20 MG TABLET PO SCH (08:26)
[2018-06-22] MEDS: ZINC OXIDE PASTE 113 GM TUBE TOP SCH ×2 (08:27→21:21)
[2018-06-22] MEDS: SPIRONOLACTONE 25 MG TABLET PO SCH (08:27)
[2018-06-22] MEDS: ENOXAPARIN 40 MG/0.4 ML SYRINGE SUBCUT SCH (08:46)
[2018-06-22] MEDS ORDERED: RANOLAZINE 500 MG TABLET PO SCH (09:00)
[2018-06-22 09:03] LABS: % Iron Saturation 18.1 % (18-50)
[2018-06-22] MEDS ORDERED: FUROSEMIDE 40 MG/4 ML VIAL IV ONE (09:43)
[2018-06-22] MEDS: traMADol 50 MG TABLET PO PRN (18:26)
[2018-06-22 18:38] LABS: Apearance,Urine CLEAR (Clear); Bilirubin,Urine Negative (Negative); Blood, Urine Negative (Negative); Glucose,Urine (UA) Negative (Negative); Ketones,Urine Negative (Negative); Nitrite,Urine Negative (Negative); Protein,Urine Negative; RBC,Urine <1 /HPF (0-4); Urine Color Straw (Yellow); Urine Specific Gravity 1.004 (1.001-1.035); Urine Urobilinogen < 2.0 EU/DL (0.2-1.0); WBC,Urine 1 /HPF (0-6)
[2018-06-22] MEDS: ACETAMINOPHEN 325 MG TABLET PO PRN (21:22)
[2018-06-23 05:53] LABS: Basophils % 0.4 % (0.0-0.8); Eosinophils # 0.1 10*3/uL (0.0-0.87); Eosinophils % 2.6 % (0.00-10.9); Hematocrit 34.9 VOL% (35.7-47.0); Hemoglobin 10.7 GM/DL (12.0-16.0); Immature Granulocytes % 0.2 %; Immature Granulocytes Absolute 0.01 #; Lymphocytes # 1.4 10*3/uL (1.4-4.0); Lymphocytes % 29.7 % (21.3-54.2); Mean Corpuscular HGB Conc 30.7 GM/DL (32-36); Mean Corpuscular Hemoglobin 27 PG (27-34); Mean Corpuscular Volume 88.4 FL (87-102); Mean Platelet Volume 9.5 FL (9.6-12.0); Monocytes # 0.9 10*3/uL (0.11-0.8); Monocytes % 18.6 % (1.7-12.7); Neutrophils # 2.2 10*3/uL (1.4-7.4); Neutrophils % 48.5 % (38.7-73.9); Platelet Count 277 T/CUMM (130-400); Red Blood Count 3.95 MC/CUMM (3.8-5.5); Red Cell Distribution Width 14.5 % (9.3-17.3); White Blood Count 4.6 T/CUMM (4-12)
[2018-06-23 06:19] LABS: Eosinophils 1 % (0-10); Hypochromasia 1+; Lymphocytes 26 % (20-55); Platelet Estimate Adequate; Segmented Neutrophils 54 % (50-85); Total Cells Counted 100
[2018-06-23 06:21] LABS: Calcium 9.1 MG/DL (8.5-10.1); Osmolality,Calculated 260.1 MOS/KG (273-304); Potassium 4.9 MMOL/L (3.5-5.1)
[2018-06-23] MEDS ORDERED: FUROSEMIDE 80 MG TABLET PO SCH (09:00)
[2018-06-23] MEDS: LISINOPRIL 5 MG TABLET PO SCH (09:05)
[2018-06-23] MEDS: ASPIRIN EC 81 MG TABLET PO SCH (09:05)
[2018-06-23] MEDS: MULTIVITAMIN (CENTRUM) TABLET PO SCH (09:05)
[2018-06-23] MEDS: CLOPIDOGREL 75 MG TABLET PO SCH (09:05)
[2018-06-23] MEDS: SPIRONOLACTONE 25 MG TABLET PO SCH (09:05)
[2018-06-23] MEDS: FUROSEMIDE 80 MG TABLET PO SCH (09:06)
[2018-06-23] MEDS: ZINC OXIDE PASTE 113 GM TUBE TOP SCH ×2 (09:06→23:56)
[2018-06-23] MEDS: CARVEDILOL 12.5 MG TABLET PO SCH (09:06)
[2018-06-23] MEDS: traMADol 50 MG TABLET PO PRN ×2 (09:07→23:53)
[2018-06-23] MEDS: ENOXAPARIN 40 MG/0.4 ML SYRINGE SUBCUT SCH (09:07)
[2018-06-23] MEDS: POLYETHYLENE GLYCOL POWDER 17 GM PACK PO SCH ×2 (09:07→23:57)
[2018-06-23] MEDS: ACETAMINOPHEN 325 MG TABLET PO PRN (20:34)
[2018-06-23] MEDS: CARVEDILOL 6.25 MG TABLET PO SCH (23:57)
[2018-06-24] MEDS: SPIRONOLACTONE 25 MG TABLET PO SCH (08:21)
[2018-06-24] MEDS: LISINOPRIL 5 MG TABLET PO SCH (08:21)
[2018-06-24] MEDS: MULTIVITAMIN (CENTRUM) TABLET PO SCH (08:21)
[2018-06-24] MEDS: CLOPIDOGREL 75 MG TABLET PO SCH (08:21)
[2018-06-24] MEDS: FUROSEMIDE 80 MG TABLET PO SCH (08:22)
[2018-06-24] MEDS: ASPIRIN EC 81 MG TABLET PO SCH (08:22)
[2018-06-24] MEDS: CARVEDILOL 6.25 MG TABLET PO SCH ×2 (08:22→23:28)
[2018-06-24] MEDS: POLYETHYLENE GLYCOL POWDER 17 GM PACK PO SCH ×2 (08:23→20:17)
[2018-06-24] MEDS: ZINC OXIDE PASTE 113 GM TUBE TOP SCH ×2 (08:23→23:28)
[2018-06-24] MEDS: ENOXAPARIN 40 MG/0.4 ML SYRINGE SUBCUT SCH (08:23)
[2018-06-24 08:41] LABS: Calcium 9.3 MG/DL (8.5-10.1); Osmolality,Calculated 260.1 MOS/KG (273-304); Potassium 4.7 MMOL/L (3.5-5.1)
[2018-06-24] MEDS: ACETAMINOPHEN 325 MG TABLET PO PRN ×2 (10:30→14:30)
[2018-06-24] MEDS: NYSTATIN CREAM 15 GM TUBE TOP SCH (11:21)
[2018-06-24] MEDS: SKIN HEALING OINT (AQUAPHOR) 50 GM TUBE TOP SCH (11:21)
[2018-06-24] MEDS ORDERED: IBUPROFEN 600 MG TABLET PO PRN (18:59)
[2018-06-24] MEDS ORDERED: traZODone 50 MG TABLET PO PRN (20:38)
[2018-06-24] MEDS: traMADol 50 MG TABLET PO PRN (21:29)
[2018-06-25] MEDS: ACETAMINOPHEN 325 MG TABLET PO PRN (06:15)
[2018-06-25] MEDS: traMADol 50 MG TABLET PO PRN ×2 (06:39→13:30)
[2018-06-25 06:52] LABS: Osmolality,Calculated 262.9 MOS/KG (273-304); Potassium 4.5 MMOL/L (3.5-5.1)
[2018-06-25] MEDS: ASPIRIN EC 81 MG TABLET PO SCH (08:22)
[2018-06-25] MEDS: CARVEDILOL 6.25 MG TABLET PO SCH (08:23)
[2018-06-25] MEDS: FUROSEMIDE 80 MG TABLET PO SCH (08:23)
[2018-06-25] MEDS: SPIRONOLACTONE 25 MG TABLET PO SCH (08:23)
[2018-06-25] MEDS: MULTIVITAMIN (CENTRUM) TABLET PO SCH (08:23)
[2018-06-25] MEDS: CLOPIDOGREL 75 MG TABLET PO SCH (08:23)
[2018-06-25] MEDS: LISINOPRIL 5 MG TABLET PO SCH (08:24)
[2018-06-25] MEDS: ENOXAPARIN 40 MG/0.4 ML SYRINGE SUBCUT SCH (08:25)
[2018-06-25] MEDS: POLYETHYLENE GLYCOL POWDER 17 GM PACK PO SCH (08:25)
[2018-06-25] MEDS: SKIN HEALING OINT (AQUAPHOR) 50 GM TUBE TOP SCH (08:26)
[2018-06-25] MEDS: ZINC OXIDE PASTE 113 GM TUBE TOP SCH (08:26)
[2018-06-25] MEDS: NYSTATIN CREAM 15 GM TUBE TOP SCH (08:29)
[2018-06-26] MEDS: ZINC OXIDE PASTE 113 GM TUBE TOP SCH ×3 (00:45→20:38)
[2018-06-26] MEDS: traMADol 50 MG TABLET PO PRN (00:48)
[2018-06-26] MEDS: CARVEDILOL 6.25 MG TABLET PO SCH ×3 (00:51→20:37)
[2018-06-26] MEDS: POLYETHYLENE GLYCOL POWDER 17 GM PACK PO SCH ×3 (00:52→20:38)
[2018-06-26 06:24] LABS: Calcium 8.9 MG/DL (8.5-10.1); Osmolality,Calculated 253.5 MOS/KG (273-304); Potassium 4.7 MMOL/L (3.5-5.1)
[2018-06-26] MEDS: LISINOPRIL 5 MG TABLET PO SCH (10:29)
[2018-06-26] MEDS: ASPIRIN EC 81 MG TABLET PO SCH (10:29)
[2018-06-26] MEDS: CLOPIDOGREL 75 MG TABLET PO SCH (10:29)
[2018-06-26] MEDS: FUROSEMIDE 80 MG TABLET PO SCH (10:29)
[2018-06-26] MEDS: MULTIVITAMIN (CENTRUM) TABLET PO SCH (10:29)
[2018-06-26] MEDS: SPIRONOLACTONE 25 MG TABLET PO SCH (10:29)
[2018-06-26] MEDS: ENOXAPARIN 40 MG/0.4 ML SYRINGE SUBCUT SCH (10:30)
[2018-06-26] MEDS: SKIN HEALING OINT (AQUAPHOR) 50 GM TUBE TOP SCH (10:30)
[2018-06-26] MEDS: NYSTATIN CREAM 15 GM TUBE TOP SCH (10:31)
[2018-06-26] MEDS: MELATONIN 3 MG TABLET PO SCH (20:37)
[2018-06-27 06:18] LABS: Calcium 8.8 MG/DL (8.5-10.1); Osmolality,Calculated 268.5 MOS/KG (273-304); Potassium 4.5 MMOL/L (3.5-5.1)
[2018-06-27] MEDS: SPIRONOLACTONE 25 MG TABLET PO SCH (09:24)
[2018-06-27] MEDS: ZINC OXIDE PASTE 113 GM TUBE TOP SCH ×2 (09:24→21:56)
[2018-06-27] MEDS: CLOPIDOGREL 75 MG TABLET PO SCH (09:24)
[2018-06-27] MEDS: MULTIVITAMIN (CENTRUM) TABLET PO SCH (09:24)
[2018-06-27] MEDS: CARVEDILOL 6.25 MG TABLET PO SCH ×2 (09:24→21:56)
[2018-06-27] MEDS: ASPIRIN EC 81 MG TABLET PO SCH (09:24)
[2018-06-27] MEDS: SKIN HEALING OINT (AQUAPHOR) 50 GM TUBE TOP SCH (09:24)
[2018-06-27] MEDS: NYSTATIN CREAM 15 GM TUBE TOP SCH (09:24)
[2018-06-27] MEDS: LISINOPRIL 5 MG TABLET PO SCH (09:24)
[2018-06-27] MEDS: FUROSEMIDE 80 MG TABLET PO SCH (09:25)
[2018-06-27] MEDS: ENOXAPARIN 40 MG/0.4 ML SYRINGE SUBCUT SCH (09:25)
[2018-06-27] MEDS: POLYETHYLENE GLYCOL POWDER 17 GM PACK PO SCH ×2 (09:25→21:56)
[2018-06-27] MEDS: traMADol 50 MG TABLET PO PRN ×2 (09:53→18:53)
[2018-06-27] MEDS: NAPROXEN 250 MG TABLET PO PRN (12:43)
[2018-06-27] MEDS: MELATONIN 3 MG TABLET PO SCH (21:56)
[2018-06-28] MEDS: ACETAMINOPHEN 325 MG TABLET PO PRN ×2 (04:47→15:07)
[2018-06-28 04:51] LABS: Calcium 8.7 MG/DL (8.5-10.1); Osmolality,Calculated 269.5 MOS/KG (273-304); Potassium 4.6 MMOL/L (3.5-5.1)
[2018-06-28] MEDS: LISINOPRIL 5 MG TABLET PO SCH (08:44)
[2018-06-28] MEDS: CLOPIDOGREL 75 MG TABLET PO SCH (08:45)
[2018-06-28] MEDS: MULTIVITAMIN (CENTRUM) TABLET PO SCH (08:45)
[2018-06-28] MEDS: ASPIRIN EC 81 MG TABLET PO SCH (08:45)
[2018-06-28] MEDS: FUROSEMIDE 80 MG TABLET PO SCH (08:45)
[2018-06-28] MEDS: SPIRONOLACTONE 25 MG TABLET PO SCH (08:45)
[2018-06-28] MEDS: CARVEDILOL 6.25 MG TABLET PO SCH ×2 (08:45→20:08)
[2018-06-28] MEDS: NAPROXEN 250 MG TABLET PO PRN ×2 (08:45→20:08)
[2018-06-28] MEDS: POLYETHYLENE GLYCOL POWDER 17 GM PACK PO SCH ×2 (09:05→22:26)
[2018-06-28] MEDS: ENOXAPARIN 40 MG/0.4 ML SYRINGE SUBCUT SCH (09:16)
[2018-06-28 12:14] LABS: Apearance,Urine CLOUDY (Clear); Bacteria,Urine Few /HPF (Few); Bilirubin,Urine Negative (Negative); Blood, Urine Negative (Negative); Glucose,Urine (UA) Negative (Negative); Ketones,Urine Negative (Negative); Nitrite,Urine Positive (Negative); Protein,Urine Negative; Urine Specific Gravity 1.015 (1.001-1.035); Urine Urobilinogen < 2.0 EU/DL (0.2-1.0); WBC,Urine 3875 /HPF (0-6)
[2018-06-28] MEDS: CIPROFLOXACIN 500 MG TABLET PO SCH ×2 (12:14→20:08)
[2018-06-28] MEDS: traMADol 50 MG TABLET PO PRN (12:14)
[2018-06-28] MEDS: LIDOCAINE 5% PATCH TRANSDERM SCH (12:15)
[2018-06-28] MEDS: NYSTATIN CREAM 15 GM TUBE TOP SCH (12:16)
[2018-06-28] MEDS: ZINC OXIDE PASTE 113 GM TUBE TOP SCH ×2 (12:16→20:08)
[2018-06-28] MEDS: SKIN HEALING OINT (AQUAPHOR) 50 GM TUBE TOP SCH (12:17)
[2018-06-28 12:19] LABS: Urine Color Yellow (Yellow)
[2018-06-28] MEDS: MELATONIN 3 MG TABLET PO SCH (20:08)
[2018-06-29] MEDS: traMADol 50 MG TABLET PO PRN ×3 (01:29→17:19)
[2018-06-29] MEDS: ACETAMINOPHEN 325 MG TABLET PO PRN ×3 (04:32→20:37)
[2018-06-29 05:14] LABS: Basophils % 0.3 % (0.0-0.8); Eosinophils # 0.1 10*3/uL (0.0-0.87); Eosinophils % 2.2 % (0.00-10.9); Hematocrit 34.5 VOL% (35.7-47.0); Hemoglobin 10.8 GM/DL (12.0-16.0); Immature Granulocytes % 0.3 %; Immature Granulocytes Absolute 0.02 #; Lymphocytes # 1.5 10*3/uL (1.4-4.0); Lymphocytes % 23.5 % (21.3-54.2); Mean Corpuscular HGB Conc 31.3 GM/DL (32-36); Mean Corpuscular Hemoglobin 28 PG (27-34); Mean Platelet Volume 8.9 FL (9.6-12.0); Monocytes # 0.7 10*3/uL (0.11-0.8); Monocytes % 11.1 % (1.7-12.7); Neutrophils # 3.9 10*3/uL (1.4-7.4); Neutrophils % 62.6 % (38.7-73.9); Platelet Count 244 T/CUMM (130-400); Red Blood Count 3.92 MC/CUMM (3.8-5.5); Red Cell Distribution Width 14.8 % (9.3-17.3); White Blood Count 6.3 T/CUMM (4-12)
[2018-06-29 05:24] LABS: Osmolality,Calculated 264.8 MOS/KG (273-304); Potassium 4.8 MMOL/L (3.5-5.1)
[2018-06-29 05:32] LABS: Hypochromasia 1+; Ovalocytes Slight; Platelet Estimate Adequate
[2018-06-29] MEDS: NAPROXEN 250 MG TABLET PO PRN (08:40)
[2018-06-29] MEDS: MULTIVITAMIN (CENTRUM) TABLET PO SCH (08:41)
[2018-06-29] MEDS: LISINOPRIL 5 MG TABLET PO SCH (08:41)
[2018-06-29] MEDS: ASPIRIN EC 81 MG TABLET PO SCH (08:42)
[2018-06-29] MEDS: SPIRONOLACTONE 25 MG TABLET PO SCH (08:42)
[2018-06-29] MEDS: CARVEDILOL 6.25 MG TABLET PO SCH ×2 (08:43→20:37)
[2018-06-29] MEDS: FUROSEMIDE 80 MG TABLET PO SCH (08:43)
[2018-06-29] MEDS: CLOPIDOGREL 75 MG TABLET PO SCH (08:43)
[2018-06-29] MEDS: CIPROFLOXACIN 500 MG TABLET PO SCH ×2 (08:46→20:41)
[2018-06-29] MEDS: SKIN HEALING OINT (AQUAPHOR) 50 GM TUBE TOP SCH (08:46)
[2018-06-29] MEDS: ZINC OXIDE PASTE 113 GM TUBE TOP SCH ×2 (08:46→20:30)
[2018-06-29] MEDS: ENOXAPARIN 40 MG/0.4 ML SYRINGE SUBCUT SCH (08:46)
[2018-06-29] MEDS: POLYETHYLENE GLYCOL POWDER 17 GM PACK PO SCH ×2 (08:46→22:16)
[2018-06-29] MEDS: NYSTATIN CREAM 15 GM TUBE TOP SCH (08:46)
[2018-06-29] MEDS: LIDOCAINE 5% PATCH TRANSDERM SCH (12:53)
[2018-06-29] MEDS: LORazepam 0.5 MG TABLET PO PRN (20:36)
[2018-06-29] MEDS: MELATONIN 3 MG TABLET PO SCH (20:37)
[2018-06-30] MEDS: ASPIRIN EC 81 MG TABLET PO SCH (09:21)
[2018-06-30] MEDS: SPIRONOLACTONE 25 MG TABLET PO SCH (09:21)
[2018-06-30] MEDS: MULTIVITAMIN (CENTRUM) TABLET PO SCH (09:21)
[2018-06-30] MEDS: POLYETHYLENE GLYCOL POWDER 17 GM PACK PO SCH ×3 (09:21→21:36)
[2018-06-30] MEDS: CARVEDILOL 6.25 MG TABLET PO SCH ×2 (09:21→21:35)
[2018-06-30] MEDS: CIPROFLOXACIN 500 MG TABLET PO SCH (09:21)
[2018-06-30] MEDS: SKIN HEALING OINT (AQUAPHOR) 50 GM TUBE TOP SCH (09:22)
[2018-06-30] MEDS: LISINOPRIL 5 MG TABLET PO SCH (09:22)
[2018-06-30] MEDS: NYSTATIN CREAM 15 GM TUBE TOP SCH (09:22)
[2018-06-30] MEDS: CLOPIDOGREL 75 MG TABLET PO SCH (09:22)
[2018-06-30] MEDS: FUROSEMIDE 80 MG TABLET PO SCH (09:22)
[2018-06-30] MEDS: ZINC OXIDE PASTE 113 GM TUBE TOP SCH ×2 (09:22→21:35)
[2018-06-30] MEDS: ENOXAPARIN 40 MG/0.4 ML SYRINGE SUBCUT SCH (09:22)
[2018-06-30] MEDS: traMADol 50 MG TABLET PO PRN ×2 (09:23→16:12)
[2018-06-30] MEDS: ACETAMINOPHEN 325 MG TABLET PO PRN ×2 (12:08→21:30)
[2018-06-30] MEDS: LIDOCAINE 5% PATCH TRANSDERM SCH (12:08)
[2018-06-30] MEDS: LORazepam 0.5 MG TABLET PO PRN (18:20)
[2018-06-30] MEDS: CIPROFLOXACIN INJ 400 MG in PREMIX 1 EACH IV SCH (21:31)
[2018-06-30] MEDS: MELATONIN 3 MG TABLET PO SCH (21:31)
[2018-07-01] MEDS: traMADol 50 MG TABLET PO PRN (04:31)
[2018-07-01] MEDS: SPIRONOLACTONE 25 MG TABLET PO SCH (08:43)
[2018-07-01] MEDS: CIPROFLOXACIN INJ 400 MG in PREMIX 1 EACH IV SCH (08:43)
[2018-07-01] MEDS: POLYETHYLENE GLYCOL POWDER 17 GM PACK PO SCH (08:43)
[2018-07-01] MEDS: ASPIRIN EC 81 MG TABLET PO SCH (08:43)
[2018-07-01] MEDS: CLOPIDOGREL 75 MG TABLET PO SCH (08:44)
[2018-07-01] MEDS: NYSTATIN CREAM 15 GM TUBE TOP SCH (08:44)
[2018-07-01] MEDS: CARVEDILOL 6.25 MG TABLET PO SCH (08:44)
[2018-07-01] MEDS: FUROSEMIDE 80 MG TABLET PO SCH (08:44)
[2018-07-01] MEDS: MULTIVITAMIN (CENTRUM) TABLET PO SCH (08:44)
[2018-07-01] MEDS: SKIN HEALING OINT (AQUAPHOR) 50 GM TUBE TOP SCH (08:44)
[2018-07-01] MEDS: ZINC OXIDE PASTE 113 GM TUBE TOP SCH (08:44)
[2018-07-01] MEDS: ACETAMINOPHEN 325 MG TABLET PO PRN (08:44)
[2018-07-01] MEDS: LISINOPRIL 5 MG TABLET PO SCH (08:44)
[2018-07-01] MEDS: ENOXAPARIN 40 MG/0.4 ML SYRINGE SUBCUT SCH (08:45)
[2018-07-01 11:00] VITALS: BP 151/72
== END 2018-07-01 11:35 | DRG 689 ==
LOC: N.ED 22:35 → N.EDINP 06-09 01:58 → SUATTDRO 06-09 01:58 → N.2E 06-09 02:39 → UNDODISIN 06-10 17:59 → N.CC 06-13 10:03 → N.TELEN 06-16 12:13 → N.5E 06-23 20:45
PROVIDERS: ADMIT Family Medicine; ATTEND Family Medicine